=== PATIENT | female | born 1985 | race Caucasian/White ===

== ENCOUNTER 2017-05-20 13:25 | Emergency (ER) | payer SELFPAY ==
[~2017-05-20] VITALS: Ht 157.5 cm; Wt 72.0 kg
[2017-05-20 13:26] VITALS: BP 167/106; PULSE 77; RESP 15; TEMP 98.2; O2SAT 97
--- NOTE | 2017-05-20 13:34 | PD ---
Physical Exam Time Seen by Provider: 13:33 Narrative 32 y/o female here with a sore skin lesion on the R leg. Vital signs reviewed. Seen at triage desk. Awaiting bed placement. Data Data Last Documented VS Vital Signs Date Time Temp Pulse Resp B/P Pulse Ox O2 Delivery O2 Flow Rate FiO2 05/20/17 13:26 98.2 77 15 167/106 97 MDM Medical Record Reviewed: Yes Supervised Visit with FELIPE: No Garrick Cardenas May 20, 2017 13:34
== END 2017-05-20 15:16 | disposition left against medical advice (07) ==
LOC: NETRI 13:25
DX: L98.9 Disorder of the skin and subcutaneous tissue, unspecified (principal)
CPT/HCPCS: 99281